=== PATIENT | male | born 2005 | race Caucasian/White ===

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

== ENCOUNTER 2023-12-05 11:09 | Emergency (ER) | payer OTHER ==
[2023-12-05 12:02] VITALS: TEMP 97.9
--- NOTE | 2023-12-05 12:37 | ED ---
Lower Extremity Injury HPI - General Chief Complaint: Extremity Injury, Lower Stated Complaint: Pain and instability in L knee Time Seen by Provider: 12/05/23 12:00 Source: patient, RN notes reviewed Mode of arrival: ambulatory Limitations: no limitations - History of Present Illness Initial Comments: This is a 18-year-old male who presents to the emergency department for left knee pain. Reports a history of recurrent left knee injuries, and believes that he has had problems with this meniscus. States that he tends to get recurrent knee instability as well. This usually heals well on its own, however over the last month he feels like symptoms have not gotten any better. He does play basketball, which he attributes to this recurrent issue. He does wear a brace when playing basketball. The knee is not particularly painful, states that it just regularly gives out on him. States that he saw orthopedics at one point, however it was around 10 years ago. MD Complaint: knee injury - Related Data Home Medications Medication Instructions Recorded Confirmed Albuterol Sulfate [Proair Hfa] 2 puff INHALATION RT-Q6H PRN 12/23/21 12/23/21 Dextroamphetamine/Amphetamine 20 mg PO DAILY 12/23/21 12/23/21 [Adderall Xr] Allergies Allergy/AdvReac Type Severity Reaction Status Date / Time cats, dogs and pollen Allergy Unknown Uncoded 12/23/21 16:33 Review of Systems ROS Statement: Those systems with pertinent positive or pertinent negative responses have been documented in the HPI. ROS Other: All systems not noted in ROS Statement are negative. Past Medical History Past Medical History: Asthma Additional Past Medical History / Comment(s): adhd History of Any Multi-Drug Resistant Organisms: None Reported Past Surgical History: No Surgical Hx Reported Past Psychological History: ADD/ADHD Smoking Status: Never smoker Past Alcohol Use History: None Reported Past Drug Use History: None Reported General Exam Limitations: no limitations General appearance: alert, in no apparent distress Head exam: Present: atraumatic, normocephalic, normal inspection Respiratory exam: Present: normal lung sounds bilaterally. Absent: respiratory distress, wheezes, rales, rhonchi, stridor Cardiovascular Exam: Present: regular rate, normal rhythm, normal heart sounds. Absent: systolic murmur, diastolic murmur, rubs, gallop, clicks Extremities exam: Present: other (No tenderness to palpation over the left patella. Full range of motion. No deformities.) Neurological exam: Present: alert, oriented X3, CN II-XII intact Psychiatric exam: Present: normal affect, normal mood Skin exam: Present: warm, dry, intact, normal color. Absent: rash Course Vital Signs 12/05/23 12/05/23 11:49 14:31 Temperature 97.9 F Pulse Rate 70 77 Respiratory 12 18 Rate Blood Pressure 118/69 O2 Sat by Pulse 98 98 Oximetry Medical Decision Making - Medical Decision Making This is a 18 year old male who presents to the emergency department for left knee pain. Was pt. sent in by a medical professional or institution? @ -No Did you speak to anyone other than the patient for history? @ -No Did you review nursing and triage notes? @ -Yes, and I agree, it is accurate with regards to the patient's symptoms. Were old charts reviewed? @ -No Differential Diagnosis? @ -Differential Musculoskeletal: Muscular strain, contusion, ligament sprain, fracture, arthritis, septic arthritis, bursitis, cellulitis, muscle spasm, nerve compression, DVT, arterial occlusion, herpes zoster, electrolyte abnormality, tumor.... This is not meant to be in all inclusive list EKG interpreted by me (3pts min.)? @ -Not obtained X-rays interpreted by me (1pt min.)? @ -X-ray of the left knee obtained. My interpretation identifies no acute fractures. CT interpreted by me (1pt min.)? @ -Not obtained U/S interpreted by me (1pt. min.)? @ -Not obtained What testing was considered but not performed? (CT, X-rays, U/S, labs)? Why? @ -None What meds were considered but not given? Why? @ -None Did you discuss the management of the patient with other professionals? @ -No Did you reconcile home meds? @ -No Was smoking cessation discussed for >3mins.? @ -No Was critical care preformed (if so, how long)? @ -No Were there social determinants of health that impacted care today? How? (Homelessness, low income, unemployed, alcoholism, drug addiction, transportation, low edu. Level, literacy, decrease access to med. care, penitentiary, rehab)? @ -No Was there de-escalation of care discussed even if they declined? (Discuss DNR or withdrawal of care, Hospice)? @ -No What co-morbidities impacted this encounter? (DM, HTN, Smoking, COPD, CAD, Cancer, CVA, Hep., AIDS, mental health diagnosis, sleep apnea, morbid obesity)? @ -None Was patient admitted / discharged? @ -Discharged. X-ray of the left knee obtained revealing no acute process. Advised the patient that if he is concerned about recurrent instability he may need to follow up with orthopedics. I did offer a knee immobilizer, however the patient declined, and states that he has a knee brace he can wear at home. He was given information for follow up with orthopedics and local primary care providers. Patient discharged home in stable condition. Advised Ibuprofen and Tylenol as needed for pain relief. Undiagnosed new problem with uncertain prognosis? @ -None Drug Therapy requiring intensive monitoring for toxicity (Heparin, Nitro, Insulin, Cardizem)? @ -None Were any procedures done? @ -None Diagnosis/symptom? @ -Knee instability Acute, or Chronic, or Acute on Chronic? @ -Chronic Uncomplicated (without systemic symptoms) or Complicated (systemic symptoms)? @ -Uncomplicated Side effects of treatment? @ -None Exacerbation, Progression, or Severe Exacerbation] @ -Exacerbation Poses a threat to life or bodily function? @ -No Return precautions reviewed in depth, the patient is instructed to return to the emergency department with any new, worsening, or concerning symptoms. Patient verbalized understanding. This case was discussed in detail with the attending ED physician, Dr. Beatty. Presentation, findings, and treatment plan discussed in detail as well. - Radiology Data Radiology results: report reviewed, image reviewed Disposition Clinical Impression: Knee instability Disposition: HOME SELF-CARE Additional Instructions: Return to the emergency department with any new, worsening, or concerning symptoms. You can use a knee brace or over the counter knee immobilizer. I am unable to prescribe any of these in particular. Contact orthopedics as listed below for a follow-up appointment. Also review the local list of primary care providers to become established for ongoing medical care. Is patient prescribed a controlled substance at d/c from ED?: No Referrals: None,Stated [Primary Care Provider] - 1-2 days Javier Morales DO [Doctor of Osteopathic Medicine] - 1-2 days Forms: Area PCPs Time of Disposition: 13:57
--- NOTE | 2023-12-05 12:38 | XR ---
EXAMINATION TYPE: XR knee complete LT DATE OF EXAM: 12/05/2023 CLINICAL HISTORY: pain TECHNIQUE: Three views of the left knee are obtained. COMPARISON: 04/24/2017 FINDINGS: There is no acute fracture/dislocation. The tri-compartment joint spaces appear within no rmal limits. The overlying soft tissue appears unremarkable. IMPRESSION: There is no acute fracture or dislocation ICD 10 NO FRACTURE, INITIAL EVALUATION
[2023-12-05 14:37] VITALS: BP 118/69; PULSE 77; RESP 18
== END 2023-12-05 14:32 | disposition home or self-care (01) ==
LOC: EC 11:09
DX: M23.52 Chronic instability of knee, left knee (principal); J45.909 Unspecified asthma, uncomplicated; Z86.59 Personal history of other mental and behavioral disorders; Z79.899 Other long term (current) drug therapy; Z88.8 Allergy status to other drugs, medicaments and biological substances
CPT/HCPCS: 99283

== ENCOUNTER 2024-06-09 20:34 | Emergency (ER) | payer OTHER ==
--- NOTE | 2024-07-08 15:15 | XR ---
Patient Kaylee Gutierrez ID [birth year] Order # EXAMINATION TYPE: XR knee 4V RT DATE OF EXAM: 06/10/2024 COMPARISON: None on downtime PACS HISTORY: Hit patella on concrete, pain TECHNIQUE: 4 view right knee FINDINGS: Joint spaces are preserved. No acute fracture or dislocation evident. No joint effusion is evident. Superficial soft tissues are normal. Patella appears intact without acute osseous abnormalit y radiographically apparent. Follow up exams can be performed 7-10 days from acute trauma for continued pain. IMPRESSION: 1. No acute osseous abnormality right knee.
== END 2024-06-10 01:18 | disposition home or self-care (01) ==
LOC: EC 20:34
CPT/HCPCS: 99283